=== PATIENT | male | born 1960 | race Caucasian/White ===

== ENCOUNTER 2016-09-19 13:15 | Emergency (ER) | payer MEDICAID ==
[~2016-09-19] VITALS: Ht 177.8 cm; Wt 74.8 kg
[~2016-09-19 13:15] MED LIST: IBUPROFEN600 MG PO; NKM
[2016-09-19 13:25] VITALS: BP 111/67
[2016-09-19 17:30] VITALS: BP 106/63
[2016-09-19 19:34] VITALS: BP 114/67
[2016-09-19 20:30] VITALS: BP 114/67
--- NOTE | 2016-09-19 21:43 | Emergency Room Report ---
History of Present Illness General Chief Complaint: Alcohol Intoxication Source: EMS Present Illness HPI Patient brought in for alcohol intoxication. Was in front of [employer]. Paramedics know patient from past presentations. Accucheck normal in field. No apparent trauma. Patient refuses to answer questions. Review of records -- 7 presentations for alcohol intoxication since 2013. No major comorbidities. BA Apr 2016 = 444. CT 2014 atrophy. In past denied SI/HI. Not able to assess. 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 Reviewed Nursing Documentation: PMH: Agreed, PSxH: Agreed Review of Systems All Other Systems: limited Physical Exam Vital Signs Date Time Temp Pulse Resp B/P Pulse Ox O2 Delivery O2 Flow Rate FiO2 09/19/16 13:14 98.4 115 20 109/66 95 Room Air Sp02 EP Interpretation: reviewed, normal General Appearance: no apparent distress, non-toxic, other - dishevelled Head: normocephalic, atraumatic Eyes: bilateral eye PERRL, bilateral eye Scleral Injection ENT: moist mucus membranes Neck: supple, no bony tend Respiratory: lungs clear, normal breath sounds Cardiovascular #1: regular rate, rhythm Cardiovascular #2: 2+ radial (R) Gastrointestinal: normal inspection, normal bowel sounds, non tender, no mass, non-distended Musculoskeletal: back normal, other - no deformity Neurologic: responsive - lethargic, DTRs symmetric - decreased, sensory intact , other - + gag Psychiatric: other - stupor Skin: warm/dry, other - dishevelled Medical Decision Making Diagnostic Impression: Primary Impression: Acute alcoholic intoxication Qualified Codes: F10.129 - Alcohol abuse with intoxication, unspecified ER Course Patient with ALOC and smell of alcohol. DDx: alcohol intoxication, depression. No evidence of head trauma. Will treat with IV hydration and observation. No lab tests indicated at this time. Resting without issue. Will re-evaluate when more sober. Signed out to Dr. Henderson. Last Vital Signs Date Time Temp Pulse Resp B/P Pulse Ox O2 Delivery O2 Flow Rate FiO2 09/19/16 17:30 97.8 106 16 106/63 100 Room Air Status: improved Disposition: HOME, SELF-CARE Referrals: NOT CHOSEN IPA/,REFERRING (PCP) Patient Instructions: Alcohol Intoxication Tim Eric M.D. September 19, 2016 21:43
== END 2016-09-19 20:30 | disposition home or self-care (01) ==
LOC: EDBD 13:15 → EMR 14:06
DX: F10.129 Alcohol abuse with intoxication, unspecified (principal)
CPT/HCPCS: 96360; 96361

== ENCOUNTER 2017-04-18 15:36 | Emergency (ER) | payer MEDICAID ==
[~2017-04-18] VITALS: Ht 167.6 cm; Wt 77.1 kg
[~2017-04-18 15:36] MED LIST changes: +UNOBMED
[2017-04-18 15:40] VITALS: BP 129/70
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
[2017-04-18 16:26] LABS: MEAN CORPUSCULAR HEMOGLOBIN 32.5 PG (27.0-31.0); MEAN CORPUSCULAR VOLUME 95 FL (80-99); MEAN PLATELET VOLUME 5.9 FL (6.5-10.1); PLATELET COUNT 231 K/UL (150-450); RED BLOOD COUNT 4.34 M/UL (4.70-6.10); RED CELL DISTRIBUTION WIDTH 12.1 % (11.6-14.8); WHITE BLOOD COUNT 11.2 K/UL (4.8-10.8)
[2017-04-18 16:52] LABS: ANION GAP 14 mmol/L (5-15); CALCIUM 8.3 MG/DL (8.5-10.1); CARBON DIOXIDE 25 MMOL/L (21-32); CHLORIDE 101 MMOL/L (98-107); CREATININE 1.1 MG/DL (0.55-1.30); GLOMERULAR FILTRATION RATE > 60 mL/min (>60); POTASSIUM 3.9 MMOL/L (3.5-5.1); SODIUM 140 MMOL/L (136-145)
[2017-04-18 16:58] LABS: ALANINE AMINOTRANSFERASE 69 U/L (12-78); ALCOHOL 518 mg/dL; ASPARTATE AMINO TRANSFERASE 133 U/L (15-37); TOTAL PROTEIN 7.8 G/DL (6.4-8.2)
[2017-04-18 17:00] LABS: BAND NEUTROPHILS % (MANUAL) 2 % (0-8); LYMPHOCYTES % (MANUAL) 9 % (20-45); NEUTROPHILS % (MANUAL) 85 % (45-75); TOTAL CELLS COUNTED 100
[2017-04-18 17:01] LABS: BASOPHILS % (MANUAL) 0 % (0-2); EOSINOPHILS % (MANUAL) 0 % (0-3); PLATELET ESTIMATE ADEQUATE; PLATELET MORPHOLOGY NORMAL
[2017-04-18 19:30] VITALS: BP 122/69
[2017-04-18 21:30] VITALS: BP 133/71
[2017-04-18 23:30] VITALS: BP 137/69
[2017-04-19 01:30] VITALS: BP 125/66
[2017-04-19 03:30] VITALS: BP 130/74
[2017-04-19 05:06] VITALS: BP 129/70
--- NOTE | 2017-04-19 08:25 | Diagnostic Imaging Report ---
Indication: PAIN altered mental status Technique: spiral acquisitions obtained through the brain. Angled axial and coronal 5 x 5 mm slices were reconstructed. No IV contrast utilized. Radiation dose was minimized using automated exposure control Total dose length product 1502 mGycm. CTDIvol(s) 70 mGy Comparison: 12/01/2013 FINDINGS: No acute hemorrhage or edema. No mass effect or midline shift. There is age-related enlargement of the ventricles and extra axial CSF spaces. There is periventricular deep white matter ischemic change. Normal hayes-white differentiation. Visualized orbits are unremarkable. Visualized sinuses are unremarkable. Intact calvarium. Areas of scalp soft tissue thickening were mostly evident previously. Previously demonstrated left frontal scalp soft tissue swelling is no longer evident, however. Bilateral zygomatic arch deformities may be congenital or posttraumatic, unchanged There is otherwise no significant interim change IMPRESSION: Chronic and age-related changes. Negative for acute intracranial bleed or mass effect This agrees with the preliminary interpretation provided overnight by [facility]. The CT scanner at [facility] is accredited by the [employer] and the scans are performed using protocols designed to limit radiation exposure to as low as reasonably achievable to attain images of sufficient resolution adequate for diagnostic evaluation
== END 2017-04-19 05:10 | disposition home or self-care (01) ==
LOC: EDBD 15:36 → EMR 15:52
DX: F10.929 Alcohol use, unspecified with intoxication, unspecified (principal); R51 Headache
CPT/HCPCS: 36415; 70450; 80053; 80329; 85007; 85025; 96360; 99284

== ENCOUNTER 2017-04-27 21:01 | Emergency (ER) | payer MEDICAID ==
[~2017-04-27] VITALS: Ht 177.8 cm; Wt 63.5 kg
[2017-04-27 21:10] VITALS: BP 124/92
[2017-04-27 23:10] VITALS: BP 122/90
[2017-04-28 01:10] VITALS: BP 127/85
[2017-04-28 03:10] VITALS: BP 131/86
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
[2017-04-28 05:25] VITALS: BP 125/87
[2017-04-28 05:50] VITALS: BP 125/87
== END 2017-04-28 05:50 | disposition home or self-care (01) ==
LOC: EDBD 21:01 → EMR 21:05
DX: F10.129 Alcohol abuse with intoxication, unspecified (principal); I10 Essential (primary) hypertension
CPT/HCPCS: 99284

== ENCOUNTER 2018-02-14 12:16 | Emergency (ER) | payer MEDICAID ==
[~2018-02-14] VITALS: Ht 172.7 cm; Wt 72.6 kg
[2018-02-14] MEDS ORDERED: Dicyclomine HCl 10mg/5ml oral soln ORAL ONE (12:45)
[2018-02-14 13:31] VITALS: BP 147/89
[2018-02-14 13:35] LABS: HEMOGLOBIN 12.4 G/DL (14.2-18.0); MEAN CORPUSCULAR VOLUME 91 FL (80-99); PLATELET COUNT 60 K/UL (150-450); RED BLOOD COUNT 4.08 M/UL (4.70-6.10); RED CELL DISTRIBUTION WIDTH 12.5 % (11.6-14.8); WHITE BLOOD COUNT 4.4 K/UL (4.8-10.8)
[2018-02-14 13:46] LABS: ANION GAP 12 mmol/L (5-15); BLOOD UREA NITROGEN 16 mg/dL (7-18); CARBON DIOXIDE 27 MMOL/L (21-32); CHLORIDE 100 MMOL/L (98-107); CREATININE 0.7 MG/DL (0.55-1.30); POTASSIUM 3.9 MMOL/L (3.5-5.1); SODIUM 139 MMOL/L (136-145)
[2018-02-14 13:58] LABS: ALANINE AMINOTRANSFERASE 85 U/L (12-78); ALBUMIN 3.4 G/DL (3.4-5.0); ALKALINE PHOSPHATASE 58 U/L (46-116); ASPARTATE AMINO TRANSFERASE 112 U/L (15-37); BILIRUBIN,TOTAL 1.1 MG/DL (0.2-1.0)
[2018-02-14 13:59] LABS: BILIRUBIN,DIRECT 0.3 MG/DL (0.0-0.3)
--- NOTE | 2018-02-14 14:10 | Emergency Room Report ---
History of Present Illness General Chief Complaint: Multiple Trauma/Fall Present Illness Allergies: Coded Allergies: No Known Allergies (Unverified , 04/26/15) UNABLE TO ASSESS (Unverified , 08/26/12) Patient History Past Medical History: see triage record, HTN, psych hx Past Surgical History: none Pertinent Family History: none Social History: Reports: alcohol use Reviewed Nursing Documentation: PMH: Agreed; PSxH: Agreed Nursing Documentation-PMH Past Medical History: No History, Except For Hx Hypertension: Yes History Of Psychiatric Problem: Yes Review of Systems All Other Systems: negative except mentioned in HPI Physical Exam Vital Signs Date Time Temp Pulse Resp B/P (MAP) Pulse Ox O2 Delivery O2 Flow Rate FiO2 02/14/18 12:17 97.9 88 16 147/89 99 Room Air 97.9 Medical Decision Making PA Attestation Dr. Novak is my supervising Physician whom patient management has been discussed with. Diagnostic Impression: Primary Impression: Acute alcoholic intoxication Qualified Codes: F10.929 - Alcohol use, unspecified with intoxication, unspecified Additional Impressions: Diarrhea Qualified Codes: R19.7 - Diarrhea, unspecified Hip pain, right ER Course Pt. presents to the ED intoxicated with alcohol, pt. is NAD, pt. is alert, no obvious signs of trauma, able to ambulate to chair. Ddx considered but are not limited to ETOH, Trauma, Syncope, dementia, OD Vital signs: are WNL, pt. is afebrile H&PE are most consistent with ETOH abuse with musculoskeletal complaints. ORDERS: - CBC: no evidence of acute Blood loss. -CMP: elevated LFT's, normal electrolytes and renal function. -Serum ETOH: 331 ED INTERVENTIONS: --Protonix PO - Bentyl PO -Observance while he detoxifies. Pt. was allowed to sleep/rest. PT. became awake and alert x 3 DISCHARGE: At this time pt. is stable for d/c to home. Will provide printed patient care instructions, and any necessary prescriptions. Care plan and follow up instructions have been discussed with the patient prior to discharge. Labs Test 02/14/18 13:23 White Blood Count 4.4 K/UL (4.8-10.8) Red Blood Count 4.08 M/UL (4.70-6.10) Hemoglobin 12.4 G/DL (14.2-18.0) Hematocrit 37.0 % (42.0-52.0) Mean Corpuscular Volume 91 FL (80-99) Mean Corpuscular Hemoglobin 30.5 PG (27.0-31.0) Mean Corpuscular Hemoglobin Concent 33.6 G/DL (32.0-36.0) Red Cell Distribution Width 12.5 % (11.6-14.8) Platelet Count 60 K/UL (150-450) Mean Platelet Volume 6.3 FL (6.5-10.1) Neutrophils (%) (Auto) % (45.0-75.0) Lymphocytes (%) (Auto) % (20.0-45.0) Monocytes (%) (Auto) % (1.0-10.0) Eosinophils (%) (Auto) % (0.0-3.0) Basophils (%) (Auto) % (0.0-2.0) Differential Total Cells Counted 100 Neutrophils % (Manual) 77 % (45-75) Lymphocytes % (Manual) 14 % (20-45) Monocytes % (Manual) 9 % (1-10) Eosinophils % (Manual) 0 % (0-3) Basophils % (Manual) 0 % (0-2) Band Neutrophils 0 % (0-8) Platelet Estimate Decreased Platelet Morphology Normal Red Blood Cell Morphology Normal Sodium Level 139 MMOL/L (136-145) Potassium Level 3.9 MMOL/L (3.5-5.1) Chloride Level 100 MMOL/L (98-107) Carbon Dioxide Level 27 MMOL/L (21-32) Anion Gap 12 mmol/L (5-15) Blood Urea Nitrogen 16 mg/dL (7-18) Creatinine 0.7 MG/DL (0.55-1.30) Estimat Glomerular Filtration Rate > 60 mL/min (>60) Glucose Level 77 MG/DL (74-106) Calcium Level 8.0 MG/DL (8.5-10.1) Total Bilirubin 1.1 MG/DL (0.2-1.0) Direct Bilirubin 0.3 MG/DL (0.0-0.3) Aspartate Amino Transf (AST/SGOT) 112 U/L (15-37) Alanine Aminotransferase (ALT/SGPT) 85 U/L (12-78) Alkaline Phosphatase 58 U/L (46-116) Total Protein 6.8 G/DL (6.4-8.2) Albumin 3.4 G/DL (3.4-5.0) Globulin 3.4 g/dL Albumin/Globulin Ratio 1.0 (1.0-2.7) Serum Alcohol 331 mg/dL CT/MRI/US Diagnostic Results CT/MRI/US Diagnostic Results #1: Imaging Test Ordered: CT Head No Contrast CT/MRI/US Diagnostic Results #2: Imaging Test Ordered: CT C-Spine No Contrast CT/MRI/US Diagnostic Results #3: Imaging Test Ordered: CT Right Hip No Contrast Last Vital Signs Date Time Temp Pulse Resp B/P (MAP) Pulse Ox O2 Delivery O2 Flow Rate FiO2 02/14/18 13:31 97.9 78 16 147/89 99 Room Air 97.9 Disposition: HOME, SELF-CARE Condition: Stable Patient Instructions: Alcohol Abuse and Nutrition Additional Instructions: Take medications as directed. Follow up with a Primary Care Provider in 3-5 days, even if your symptoms have resolved. --Please review list of primary care clinics, if you do not already have a primary care provider Return sooner to ED if new symptoms occur, or current symptoms become worse. - Please note that this Emergency Department Report was dictated using Fashfixregistered nurse nursery technology software, occasionally this can lead to erroneous entry secondary to interpretation by the dictation equipment. Radha Flores Feb 14, 2018 14:10
--- NOTE | 2018-02-14 14:23 | Diagnostic Imaging Report ---
Indication: Hip pain Technique: continuous helical imaging in the transaxial plane was performed from the iliac crests to the pubic symphysis with attention to the right hip. Coronal 2-D reformatted images were also generated. Study obtained in a Siemens Sensation [address] total DLP: 271.33 mGycm CTD/vol: 8.89 mGy Comparison: None Findings: There is no evidence of an acute fracture or significant malalignment identified on this examination. There is a small lucent focus within the posterior part of the right ilium near the sacroiliac joint, nonspecific in nature and incidental measuring 12 mm (image 14 of series 3). Consider corresponding bone scan or MRI examination. The appendix is incidentally seen and appears normal. There is no free fluid. IMPRESSION: No acute injury identified. 12 mm lucent focus in the right ilium. Recommend nonemergent outpatient workup of this with bone scan or MRI as this is an incidental finding. The CT scanner at [facility] is accredited by the [employer] and the scans are performed using dose optimization techniques as appropriate to a performed exam including Automatic Exposure control.
--- NOTE | 2018-02-14 14:25 | Diagnostic Imaging Report ---
Indication: Neck pain. Technique: Continuous helical imaging of the cervical spine was obtained transaxially from the skull base to the upper thoracic spine. 2-D coronal and sagittal reformatted images were obtained. Automatic Exposure Control was utilized. Total Dose length Product (DLP): 244.[address] Dose Index Volume (CTDIvol): 12.12 mGy Comparison: None Findings: There is no acute fracture or malalignment identified. There is no soft tissue swelling identified. Moderate uncovertebral arthritis is demonstrated at multiple levels. Some of the intervertebral discs show narrowing and osteophytes. Paraseptal blebs noted at the lung apices. Impression: No acute injury Moderate spondylosis Paraseptal blebs at the lung apices The CT scanner at [facility] is accredited by the [employer] and the scans are performed using dose optimization techniques as appropriate to a performed exam including Automatic Exposure control.
--- NOTE | 2018-02-14 15:56 | Diagnostic Imaging Report ---
Indication: Headache Technique: Contiguous 5 mm thick transaxial imaging of the head obtained in a Siemens Sensation [address] scanner[address] Soft tissue and bone windows generated. Automatic Exposure Control was utilized. Total Dose length Product (DLP): 1446.[address] Dose Index Volume (CTDIvol): 70.38 mGy Comparison: 04/18/2017 Findings: There is moderate prominence of the ventricles, basal cisterns, and cerebral sulci consistent with atrophy. Moderate, nonspecific, white matter hypoattenuation is noted throughout the brain consistent with chronic small vessel disease. There is no midline shift, edema, acute hemorrhage, mass effect, or abnormal extra-axial fluid collections. Bones and extra osseous soft tissues are unremarkable. Impression: No acute intracranial bleed, mass effect or edema. Moderate atrophy of the brain. Evidence of chronic small vessel disease involving white matter tracts. The CT scanner at [facility] is accredited by the [employer] and the scans are performed using dose optimization techniques as appropriate to a performed exam including Automatic Exposure control.
[2018-02-14 18:08] VITALS: BP 132/76
[2018-02-14 18:42] VITALS: BP 132/76
== END 2018-02-14 18:42 | disposition home or self-care (01) ==
LOC: EDBD 12:16 → EMR 12:58
DX: F10.929 Alcohol use, unspecified with intoxication, unspecified (principal); R19.7 Diarrhea, unspecified; I10 Essential (primary) hypertension
CPT/HCPCS: 36415; 70450; 72125; 80053; 80329; 82248; 82962; 85007; 85025; 99284

== ENCOUNTER 2020-05-13 03:22 | Emergency (ER) | payer MEDICAID, OTHER ==
[~2020-05-13] VITALS: Ht 170.2 cm; Wt 63.5 kg
--- NOTE | 2020-05-13 03:39 | NUR ---
ED Nurse Note: Patient walked into the ED with c/o difficulty of breathing onset 3 hrs ago. Patient stated he was waiting on a bus stop when symptoms occured. Patient was seen in [facility] 3 hours ago s/p fall due to alcohol intoxication. Patient has bruise at nose and at lower extremities but pt stated CT scan came out negative at [facility]. Patient denies CP, fever/chills, flu like s/sx. Patient is AAOX4 and ambulatory
--- NOTE | 2020-05-13 03:45 | NUR ---
ED Nurse Note: ERMD at bedside
[2020-05-13 03:47] VITALS: BP 128/76
[2020-05-13] MEDS ORDERED: LORazepam Inj 2mg/ml 1ml IM ONE (04:00)
[2020-05-13] MEDS ORDERED: chlordiazePOXIDE 25mg Cap ORAL ONE (04:00)
--- NOTE | 2020-05-13 04:00 | NUR ---
ED Nurse Note: Xray done at bedside
[2020-05-13] MEDS ORDERED: LIBRIUM25 MG ORAL (04:05)
--- NOTE | 2020-05-13 04:06 | Emergency Room Report ---
History of Present Illness General Chief Complaint: General Complaint Source: Patient Present Illness HPI This is a 59-year-old male who is an alcoholic. He presents with chief complaint of shortness of breath. He had a head trauma and was seen at [facility] yesterday. He has CT head and CT C-spine was negative. Blood work was unremarkable except for alcohol level was 478. He was there for several hours and was discharged in the evening. He was waiting at the bus stop but as the night goes on he started feeling more shaky and short of breath. He also had vomiting. He came in to be evaluated. His main complaint here is that he feels short of breath. No fever chills. No chest pain. He gets withdrawal symptoms severely when he stopped drinking. Patient said last drink was about 24 hours ago. Allergies: Coded Allergies: No Known Allergies (Unverified , 04/26/15) UNABLE TO ASSESS (Unverified , 08/26/12) COVID-19 Screening Contact w/high risk pt: No Experienced COVID-19 symptoms?: No COVID-19 Testing performed [employer]: No Patient History Past Medical History: see triage record, old chart reviewed, HTN Past Surgical History: other Pertinent Family History: none Social History: Reports: alcohol use Immunizations: other Reviewed Nursing Documentation: PMH: Agreed; PSxH: Agreed Nursing Documentation-PMH Past Medical History: No History, Except For Hx Hypertension: Yes Review of Systems Eye: Denies: eye pain, blurred vision ENT: Denies: ear pain, nose congestion, throat swelling Respiratory: Reports: shortness of breath; Denies: cough Cardiovascular: Denies: chest pain, palpitations Gastrointestinal: Denies: abdominal pain, diarrhea, nausea, vomiting Musculoskeletal: Denies: back pain, joint pain Skin: Denies: rash Neurological: Denies: headache, numbness Endocrine: Denies: increased thirst, increased urine Hematologic/Lymphatic: Denies: easy bruising All Other Systems: negative except mentioned in HPI Physical Exam Vital Signs Date Time Temp Pulse Resp B/P (MAP) Pulse Ox O2 Delivery O2 Flow Rate FiO2 05/13/20 03:36 97.5 119 18 128/76 (93) 98 Room Air Vitals with tachycardia Sp02 EP Interpretation: reviewed, normal General Appearance: well appearing, no apparent distress, alert Head: normocephalic, atraumatic Eyes: bilateral eye PERRL, bilateral eye EOMI ENT: hearing grossly normal, normal pharynx Neck: full range of motion, supple, no meningismus Respiratory: chest non-tender, lungs clear, normal breath sounds Cardiovascular #1: regular rate, rhythm, no murmur, tachycardia Gastrointestinal: normal bowel sounds, non tender, no mass, no organomegaly, no bruit, non-distended Musculoskeletal: back normal, normal range of motion, gait/station normal Neurologic: grossly normal, other - Tremulous Psychiatric: anxious Medical Decision Making Diagnostic Impression: Primary Impression: Alcohol withdrawal Qualified Codes: F10.230 - Alcohol dependence with withdrawal, uncomplicated ER Course Patient presents with acute alcohol withdrawal syndrome. Better after Ativan and Librium. Heart rate improved. Not suicidal or homicidal. He has been referred to psychiatry at [facility] already. No evidence of pneumonia, ACS, PE, dissection telemetry. Will discharge home. Chest X-Ray Diagnostic Results Chest X-Ray Diagnostic Results : Chest X-Ray Ordered: Yes # of Views/Limited/Complete: 1 View Indication: Shortness of Breath EP Interpretation: Yes Interpretation: no consolidation, no effusion, no pneumothorax, no acute cardiopulmonary disease Impression: No acute disease Electronically Signed by: Jaya Schultz MD Last Vital Signs Date Time Temp Pulse Resp B/P (MAP) Pulse Ox O2 Delivery O2 Flow Rate FiO2 05/13/20 03:47 98.0 108 20 128/76 98 Room Air Status: improved Disposition: HOME, SELF-CARE Condition: Stable Scripts Chlordiazepoxide (Chlordiazepoxide HCl) 25 Mg Capsule 25 MG ORAL THREE TIMES A DAY, #21 CAP 0 Refills Prov: Jaya Schultz MD 05/13/20 Referrals: NON PHYSICIAN (PCP) Additional Instructions: Abstain from alcohol. Follow-up with AA meeting. Follow-up with your doctor in 7 days. Return if symptoms worsen. Jaya Schultz MD May 13, 2020 04:06
--- NOTE | 2020-05-13 04:30 | NUR ---
ED Nurse Note: Patient asleep on bed. VSS as documented. No c/o /SOB noted
[2020-05-13 05:59] VITALS: BP 128/76
--- NOTE | 2020-05-13 05:59 | NUR ---
ER DISCHARGE NOTE: Patient is cleared to be discharged per ERMD, pt is aox4, on room air, with stable vital signs. pt was given dc and prescription instructions, pt was able to verbalize understanding, pt id band removed. pt is able to ambulate with steady gait. pt took all belongings.
--- NOTE | 2020-05-13 09:10 | Diagnostic Imaging Report ---
Indication: Shortness of breath Technique: One view of the chest Comparison: 08/26/2012 Findings: The heart size is normal. There is some scarring in the right lung apex. The lungs and pleural spaces are clear otherwise. There is an old healed fracture deformity of the left sixth rib. There is an ununited fracture of the left ninth rib. Impression: No acute process. Findings as noted
== END 2020-05-13 06:00 | disposition home or self-care (01) ==
LOC: EMR 03:52
DX: F10.230 Alcohol dependence with withdrawal, uncomplicated (principal); I10 Essential (primary) hypertension
CPT/HCPCS: 71045